=== PATIENT | male | born 1970 | race Hispanic/Latino ===

== ENCOUNTER → 2018-06-24 | Outpatient (CLI) | payer OTHER ==
--- NOTE | 2018-06-24 11:00 | Diagnostic Imaging Report ---
EXAM: US ABDOMEN COMPLETE DATE: 06/24/2018 10:10 AM INDICATION: Nausea COMPARISON: None TECHNIQUE: Transverse and longitudinal kelly scale and color doppler sonographic images of the upper abdomen were obtained. FINDINGS: LIVER 13.9 cm in the right midclavicular line. Normal echogenicity of the liver with normal contour, no masses. SPLEEN 8.9 cm in maximum diameter. Normal echogenicity, no masses. GALLBLADDER No gallbladder wall thickening, distension, stone, or pericholecystic fluid. Negative reported sonographic Murillo's sign. BILE DUCTS No intra nor extra-hepatic biliary dilation. Common bile duct measures 0.2 cm PANCREAS: Visualized portions are normal. RIGHT KIDNEY: 11.4 cm Echogenicity: Normal Collecting System: No hydronephrosis Stones: None Cyst/Mass: None LEFT KIDNEY: 11.6 cm Echogenicity: Normal Collecting System: No hydronephrosis Stones: None Cyst/Mass: None VESSELS: Aorta: Limited evaluation. Inferior Vena Cava: Visualized portions are normal Main Portal Vein: 1.0 cm, normal size with hepatopetal flow. FREE FLUID: None IMPRESSION: Unremarkable abdominal ultrasound. Signed by: Dr. Jen Campos MD on 06/24/2018 10:57 AM
== END ==
LOC: US 10:00
PROVIDERS: ATTEND Internal Medicine Gastroenterology
DX: R11.0 Nausea (principal)
CPT/HCPCS: 76700